=== PATIENT | female | born 1975 | race African-American/Black ===

== ENCOUNTER 2021-02-05 14:33 | Emergency (ER) | payer OTHER, SELFPAY ==
[2021-02-05] MEDS ORDERED: Ibuprofen 800 MG TAB ONE (15:23)
[2021-02-05] MEDS ORDERED: Acetaminophen 500 MG TAB ONE (15:23)
== END 2021-02-05 16:15 | disposition home or self-care (01) ==
LOC: NAV ERS 14:33
DX: H57.11 Ocular pain, right eye (principal); I10 Essential (primary) hypertension
CPT/HCPCS: 70450